=== PATIENT | female | born 1960 | race Caucasian/White ===

== ENCOUNTER 2020-02-06 03:32 | Emergency (ER) | payer SELFPAY ==
[2020-02-06 04:16] LABS: Urine Blood NEGATIVE (NEG); Urine Glucose TRACE (NEG); Urine Protein TRACE (NEG); Urine Specific Gravity >1.030 (1.005-1.030); Urine pH 5.5 (5.0-7.0)
[2020-02-06 04:27] LABS: Absolute Lymphocytes (CBC) 1.9 K/uL (0.7-4.9); Basophils % 0.3 % (0-1.3); Hematocrit 44.4 % (36.0-45.0); Lymphocytes % 19.1 % (15.3-44.8); MPV 7.4 fL (7.6-11.3)
[2020-02-06 04:38] LABS: Barbiturates NEGATIVE (NEGATIVE); Benzodiazepines POSITIVE (NEGATIVE); Cocaine NEGATIVE (NEGATIVE); METHAMPHETAM NEGATIVE (NEGATIVE); Methadone NEGATIVE (NEGATIVE); Opiates POSITIVE (NEGATIVE); Phencyclidine NEGATIVE (NEGATIVE); THC Cannibis NEGATIVE (NEGATIVE)
[2020-02-06 04:44] LABS: Protime INR 0.99
[2020-02-06 04:55] LABS: ALT/SGPT 46 U/L (12-78); AST/SGOT 34 U/L (15-37); Albumin 3.3 g/dL (3.4-5.0); Alkaline Phosphatase 101 U/L (45-117); BUN Blood Urea Nitrogen 18 mg/dL (7-18); Bicarbonate 25 mmol/L (21-32); Bilirubin Direct 0.1 mg/dL (0-0.2); Bilirubin Total 0.3 mg/dL (0.2-1.0); Glucose Level 107 mg/dL (74-106); Potassium 3.5 mmol/L (3.5-5.1); Protein, Total 7.5 g/dL (6.4-8.2); Sodium Level 144 mmol/L (136-145)
[2020-02-06 05:28] LABS: Thyroid Stimulating Hormone 6.38 uIU/mL (0.360-3.740)
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
[2020-02-06 08:17] VITALS: O2SAT 98
[2020-02-06 08:19] VITALS: BP 132/70; TEMP 98.8
--- NOTE | 2020-02-06 12:24 | EKG ---
Test Date: 2020-02-06 Test Time: 04:39:38 Air Vice Marshal: LAURA MEASUREMENT RESULTS: Intervals: Rate: 105 AK: 166 QRSD: 78 QT: 330 QTc: 436 [place]: P: 62 AK: 166 QRS: 115 T: 58 INTERPRETIVE STATEMENTS: Sinus tachycardia Left posterior fascicular block Abnormal ECG No previous ECG available for comparison Electronically Signed On 02-06-20 12:24:07 CDT by Héctor Nieto
--- NOTE | 2020-02-06 21:16 | RAD REPORT ---
EXAM DESCRIPTION: RAD - Chest Single View - 02/06/2020 4:05 am CLINICAL HISTORY: The patient is 59 years old and is Female; FEVER TECHNIQUE: Frontal view of the chest. COMPARISON: No relevant prior studies available. FINDINGS: LUNGS: Unremarkable. No consolidation. PLEURAL SPACE: Unremarkable. No pneumothorax. HEART: Unremarkable. No cardiomegaly. MEDIASTINUM: Unremarkable. BONES/JOINTS: Postsurgical change of the cervical spine is noted. With minimal degenerative change of the acromioclavicular joints. IMPRESSION: No acute cardiopulmonary process. Electronically signed by: Dee Arauz MD 02/06/2020 6:25 AM CDT Due to temporary technical issues with the PACS/Fluency reporting system, reports are being signed by the in house radiologist without review as a courtesy to ensure prompt reporting. The interpreting r adiologist is fully responsible for the content of the report.
--- NOTE | 2020-02-06 21:22 | RAD REPORT ---
EXAM DESCRIPTION: CT - Head Brain Wo Cont - 02/06/2020 6:44 am CLINICAL HISTORY: The patient is 59 years old and is Female; CONFUSED TECHNIQUE: Axial computed tomography images of the head/brain without intravenous contrast. Sagitt al and coronal reformatted images were created and reviewed. This CT exam was performed using one o r more of the following dose reduction techniques: automated exposure control, adjustment of the mA and/or kV according to patient size, and/or use of iterative reconstruction technique. COMPARISON: No relevant prior studies available. FINDINGS: Brain: Unremarkable. No hemorrhage. No significant white matter disease. No edema. Ventricles: Unremarkable. No ventriculomegaly. Bones/joints: Unremarkable. No acute skull fracture. Soft tissues: Unremarkable. Sinuses: Unremarkable as visualized. No acute sinusitis. Mastoid air cells: No significant mastoid fluid. IMPRESSION: No acute intracranial findings. No hemorrhage. Electronically signed by: Gwen Hardy MD 02/06/2020 5:06 AM CDT Due to temporary technical issues with the PACS/Fluency reporting system, reports are being signed by the in house radiologist without review as a courtesy to ensure prompt reporting. The interpreting r adiologist is fully responsible for the content of the report.
== END 2020-02-06 07:48 | disposition home or self-care (01) ==
LOC: ER 03:32
DX: R41.82 Altered mental status, unspecified (principal); T40.2X5A Adverse effect of other opioids, initial encounter; R50.9 Fever, unspecified; F31.9 Bipolar disorder, unspecified; G40.909 Epilepsy, unspecified, not intractable, without status epilepticus; F17.210 Nicotine dependence, cigarettes, uncomplicated
CPT/HCPCS: 36415; 70450; 71045; 80048; 80076; 80307; 80320; 80329; 81003; 83605; 83880; 84145; 84439; 84443; 84484; 85025; 85610; 85730; 87040; 87804; 93005; 99285